=== PATIENT | male | born 1945 | race Caucasian/White ===

== ENCOUNTER 2016-08-14 16:45 | Emergency (ER) | payer MEDICARE ==
[2016-08-14] MEDS ORDERED: Ketorolac 60 MG/2 ML SDV IM ONE (17:29)
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
[2016-08-14 18:18] VITALS: BP 149/89
--- NOTE | 2016-08-15 08:54 | CR ---
Ankle Min 3V Rt HISTORY: Injury FINDINGS: There is normal alignment. There is no evidence of fracture. The ankle mortise appears int act. The soft tissues are unremarkable. IMPRESSION: Negative exam.
== END 2016-08-14 18:34 | disposition home or self-care (01) ==
LOC: JP.ED 16:45
DX: S93.402A Sprain of unspecified ligament of left ankle, initial encounter (principal); K21.9 Gastro-esophageal reflux disease without esophagitis; Z88.8 Allergy status to other drugs, medicaments and biological substances; Z79.899 Other long term (current) drug therapy; Z98.890 Other specified postprocedural states; W01.0XXA Fall on same level from slipping, tripping and stumbling without subsequent striking against object, initial encounter
CPT/HCPCS: 73610; 96372; 99284; J1885; 99283